=== PATIENT | male | born 1975 | race Caucasian/White ===

== ENCOUNTER 2017-04-07 20:34 | Emergency (ER) | payer BC, OTHER ==
[2017-04-07 20:41] VITALS: BP 153/70
[2017-04-07] MEDS ORDERED: Erythromycin OPTH OINT* APPLIC OINT LEFT EYE ONE (22:41)
[2017-04-07] MEDS ORDERED: Ketorolac INJ* 60 MG/2 ML VIAL IM ONE (22:42)
--- NOTE | 2017-04-07 23:44 | ED ---
Throat Pain/Nasal Congestion - HPI Summary HPI Summary: Patient presents after getting a peice metal he was grinding in his eye yesterday. He was wearing safety glasses, but thinks it came up under the glasses. He was okay yesterday but today he has a foreign body sensation. He denies vision changes, TIJERINA, or drainage. He has photophobia. - History of Current Complaint Chief Complaint: EDEyeProblem Time Seen by Provider: 04/07/17 20:47 Hx Obtained From: Patient, Family/Employment And Claims Aide Onset/Duration: Gradual Onset Severity: Severe Associated Signs And Symptoms: Positive: FB Sensation Cough: None - Allergies/Home Medications Allergies/Adverse Reactions: Allergies Allergy/AdvReac Type Severity Reaction Status Date / Time No Known Allergies Allergy Verified 05/16/16 07:48 PMH/Surg Hx/FS Hx/Imm Hx Endocrine/Hematology History: Denies: Hx Diabetes Respiratory History: Reports: Hx Chronic Bronchitis, Hx Sleep Apnea, Other Respiratory Problems/Disorders - ex-smoker Denies: Hx Asthma, Hx Chronic Obstructive Pulmonary Disease (COPD) GI History: Reports: Hx Irritable Bowel Musculoskeletal History: Reports: Other Musculoskeletal History - temporomandibular joint problems - Surgical History Surgery Procedure, Year, and Place: Appendectomy Infectious Disease History: No Infectious Disease History: Denies: Traveled Outside the [place] in Last 30 Days - Family History Known Family History: Positive: Unknown - Social History Occupation: Employed Full-time Lives: With Family Alcohol Use: None Alcohol Amount: 1 beer Hx Substance Use: No Substance Use Type: Reports: None Hx Tobacco Use: Yes Smoking Status (MU): Light Every Day Tobacco Smoker Type: Cigarettes Amount Used/How Often: 1 cigarette/day Length of Time of Smoking/Using Tobacco: 10 years Have You Smoked in the Last Year: Yes Cessation Counseling: Patient Advised to Stop Review of Systems Positive: Photophobia, Erythema. Negative: Blurred Vision, Diplopia, Drainage Negative: Headache All Other Systems Reviewed And Are Negative: Yes Physical Exam Triage Information Reviewed: Yes Vital Signs On Initial Exam: Initial Vitals Temp Pulse Resp BP Pulse Ox 97.8 F 75 18 153/70 99 04/07/17 20:39 04/07/17 20:39 04/07/17 20:39 04/07/17 20:39 04/07/17 20:39 Vital Signs Reviewed: Yes Appearance: Positive: Well-Appearing, Well-Nourished, Pain Distress Skin: Positive: Warm, Skin Color Reflects Adequate Perfusion, Dry, Soft Head/Face: Positive: Normal Head/Face Inspection Eyes: Positive: EOMI, SWETA, Conjunctiva Inflammed - left ENT: Positive: Hearing grossly normal Respiratory/Lung Sounds: Positive: Breath Sounds Present Cardiovascular: Positive: RRR Musculoskeletal: Negative: Edema Left, Edema Right Neurological: Positive: Sensory/Motor Intact, Alert, Oriented to Person Place, Time, NV Bundle Intact Distally, Normal Gait Psychiatric: Positive: Affect/Mood Appropriate AVPU Assessment: Alert Procedures - Eye Procedure Alcaine Drops Administered: Yes Eye FB Removal: removal w/ cotton swab Eye Irrigated w/ Saline (ccs): 30 Antibiotic Ointment/Drps Admin: left eye Diagnostics - Vital Signs Vital Signs Temp Pulse Resp BP Pulse Ox 04/07/17 20:39 97.8 F 75 18 153/70 99 - Laboratory Lab Statement: Any lab studies that have been ordered have been reviewed, and results considered in the medical decision making process. EENT Course/Dx - Differential Diagnoses Differential Diagnoses: Corneal Abrasion, Detached Retina, Foreign Body, Keratitis, Periorbital/Orbital Cellulitis, Uveitis - Diagnoses Provider Diagnoses: Foreign body of left eye Discharge - Discharge Plan Condition: Stable Disposition: HOME Patient Education Materials: Eye Foreign Body (ED) Referrals: Cullen Acuña MD [Primary Care Provider] - Jian Morelos MD [Medical Doctor] - Additional Instructions: Apply the ointment in 1 cm strips six times daily to treat your eye. Call Dr. Morelos's office first thing in the morning for a follow-up appointment in 1-2 days. Begin taking ibuprofen 600 mg three times daily with meals tomorrow at dinner and continue until pain resolves. Return to the emergency department if symptoms worsen.
== END 2017-04-07 22:57 | disposition home or self-care (01) ==
LOC: ED 20:34
DX: T15.92XA Foreign body on external eye, part unspecified, left eye, initial encounter (principal); F17.210 Nicotine dependence, cigarettes, uncomplicated; X58.XXXA Exposure to other specified factors, initial encounter; Y92.9 Unspecified place or not applicable
CPT/HCPCS: 99281; A9270-GY; J1885

== ENCOUNTER 2018-01-20 19:03 | Emergency (ER) | payer BC ==
[2018-01-20] MEDS ORDERED: Fluorescein Sodium TOPICAL* 1 MG TEST OPHTHALMIC ONE (19:54)
[2018-01-20] MEDS ORDERED: Tetracaine 0.5% OPTH.SOL 4 ML* 1 DROP BTL ONE (19:54)
[2018-01-20] MEDS ORDERED: Fluorescein Sod TOPICAL 0.6* 0.6 MG TEST OPHTHALMIC ONE (20:22)
[2018-01-20] MEDS ORDERED: Polymyx/Trimethoprim OPTH* 10 ML BTL RIGHT EYE ONE (21:09)
--- NOTE | 2018-01-20 21:09 | ED ---
Throat Pain/Nasal Congestion - HPI Summary HPI Summary: 43M presents with potentially right eye foreign body for the past couple days. He states he put on sunglasses and a piece of dust may have landed in his eye. He has been using saline rinses for the area with some relief. He states his eye feels irritated. He states there is no change in vision. He denies any pain. He denies any blurry vision. There is mild conjunctiva injection. He does not wear contacts or glasses. He believes his tetanus is up to date. - History of Current Complaint Chief Complaint: EDEyeProblem Time Seen by Provider: 01/20/18 19:52 - Allergies/Home Medications Allergies/Adverse Reactions: Allergies Allergy/AdvReac Type Severity Reaction Status Date / Time No Known Allergies Allergy Verified 05/16/16 07:48 PMH/Surg Hx/FS Hx/Imm Hx Endocrine/Hematology History: Denies: Hx Diabetes Respiratory History: Reports: Hx Chronic Bronchitis, Hx Sleep Apnea, Other Respiratory Problems/Disorders - ex-smoker Denies: Hx Asthma, Hx Chronic Obstructive Pulmonary Disease (COPD) GI History: Reports: Hx Irritable Bowel Musculoskeletal History: Reports: Other Musculoskeletal History - temporomandibular joint problems - Surgical History Surgery Procedure, Year, and Place: Appendectomy Infectious Disease History: No Infectious Disease History: Denies: Traveled Outside the [place] in Last 30 Days - Family History Known Family History: Positive: Unknown - Social History Alcohol Use: Rare Alcohol Amount: 1 beer Hx Substance Use: No Substance Use Type: Reports: None Hx Tobacco Use: Yes Smoking Status (MU): Current Some Day Smoker Type: Cigarettes Amount Used/How Often: 1 cigarette/day Length of Time of Smoking/Using Tobacco: 10 years Have You Smoked in the Last Year: Yes Review of Systems Negative: Fever Positive: Erythema Negative: Chest Pain Negative: Shortness Of Breath All Other Systems Reviewed And Are Negative: Yes Physical Exam Triage Information Reviewed: Yes Vital Signs On Initial Exam: Initial Vitals Temp Pulse Resp BP Pulse Ox 97.9 F 88 16 143/88 97 01/20/18 19:07 01/20/18 19:07 01/20/18 19:07 01/20/18 19:07 01/20/18 19:07 Vital Signs Reviewed: Yes Appearance: Positive: Well-Appearing Skin: Positive: Warm, Dry Head/Face: Positive: Normal Head/Face Inspection Eyes: Positive: EOMI, SWETA, Conjunctiva Inflammed, Other: - no foreign body seen , small 1mm uptake of sclera at 6 position ENT: Positive: Normal ENT inspection, Pharynx normal, TMs normal Respiratory/Lung Sounds: Positive: Clear to Auscultation, Breath Sounds Present Cardiovascular: Positive: Normal, RRR Musculoskeletal: Positive: Normal Neurological: Positive: Normal Psychiatric: Positive: Normal Procedures - Eye Procedure Alcaine Drops Administered: Yes - 1mm uptake on fluorescein of sclera Diagnostics - Vital Signs Vital Signs Temp Pulse Resp BP Pulse Ox 01/20/18 19:07 97.9 F 88 16 143/88 97 - Laboratory Lab Statement: Any lab studies that have been ordered have been reviewed, and results considered in the medical decision making process. EENT Course/Dx - Course Course Of Treatment: 43M presents with potentially right eye foreign body for the past couple days. He states he put on sunglasses and a piece of dust may have landed in his eye. He has been using saline rinses for the area with some relief. He states his eye feels irritated. He states there is no change in vision. He denies any pain. He denies any blurry vision. There is mild conjunctiva injection. He does not wear contacts or glasses. He believes his tetanus is up to date. On exam mild injected conjunctiva. The extraocular movements intact. SWETA. Or is seen exam shows 1 mm uptake at 6 position of sclera. Will treat with Polytrim. will Follow with optho if no improvement. Patient understands and agrees plan. - Differential Diagnoses Differential Diagnoses: Conjunctivitis, Corneal Abrasion, Foreign Body, Glaucoma - Diagnoses Provider Diagnoses: Abrasion of sclera of right eye Discharge - Discharge Plan Condition: Good Disposition: HOME Patient Education Materials: Corneal Abrasion (ED) Referrals: Cullen Acuña MD [Primary Care Provider] - Javi Ye MD [Medical Doctor] - Additional Instructions: Place 1 drop in eye 4 times a day for 5 days Use artificial tears or saline to rinse eye for symptomatic relief Take Tylenol or ibuprofen for pain every 6 hours Follow up with ophthalmology if no improvement in 5 days Return to ED if develop any new or worsening symptoms
[2018-01-20 21:35] VITALS: BP 127/77
== END 2018-01-20 21:34 | disposition home or self-care (01) ==
LOC: ED 19:03
DX: T15.91XA Foreign body on external eye, part unspecified, right eye, initial encounter (principal); S05.01XA Injury of conjunctiva and corneal abrasion without foreign body, right eye, initial encounter; X58.XXXA Exposure to other specified factors, initial encounter; Y92.9 Unspecified place or not applicable; Z72.0 Tobacco use
CPT/HCPCS: 99282; A9270-GY

== ENCOUNTER 2018-11-12 08:31 | Emergency (ER) | payer BC ==
--- NOTE | 2018-11-12 09:08 | ED ---
HPI Chest Pain - HPI Summary HPI Summary: A 43 y/o M presents to ED with c/o intermittent episodes of left lower anterior CP onset three weeks. CP is described as sharp and radiating upward in his chest. Pain rated as 2-3 out of 10 at bedside. Pt has a past L shoulder injury and is unsure if his recent CP is radiating to his LUE. Denies fever, cough, abd pain, LE pain. He feels these sx are different than his previous episodes of GERD. Pt states he finally has time to get the pain assessed, he's been busy with work. Pt called his PCP, Dr. Acuña, today who referred him to ED. He has had a previous stress test and endoscopy. PMHx: sleep apnea, he uses a CPAP ; GERD. Vital signs while in room: HR 82 bpm, BP 126/75. Home Medications Medication Instructions Recorded Confirmed Type ALPRAZolam [Xanax] 1 tab PO DAILY PRN 11/12/18 11/12/18 History - History of Current Complaint Chief Complaint: EDChestPainROMI Time Seen by Provider: 11/12/18 08:52 Hx Obtained From: Patient Onset/Duration: Started Weeks Ago, Atraumatic, Still Present Timing: Intermittent Initial Severity: Moderate Current Severity: Mild Pain Intensity: 2 - at bedside Pain Scale Used: 0-10 Numeric Chest Pain Location: Left Anterior - lower Chest Pain Radiates: Yes Chest Pain Radiates To:: Shoulder - left Character: Sharp/Stabbing Aggravating Factor(s): Nothing Alleviating Factor(s): Nothing Associated Signs and Symptoms: Negative: Fever, Cough, Abdominal Pain, Calf Pain /Swelling - Allergy/Home Medications Allergies/Adverse Reactions: Allergies Allergy/AdvReac Type Severity Reaction Status Date / Time No Known Allergies Allergy Verified 11/12/18 08:36 Home Medications: Home Medications ALPRAZolam [Xanax] 1 tab PO DAILY PRN 11/12/18 [History Confirmed 11/12/18] PMH/Surg Hx/FS Hx/Imm Hx Previously Healthy: No Endocrine/Hematology History: Denies: Hx Diabetes Respiratory History: Reports: Hx Chronic Bronchitis, Hx Sleep Apnea, Other Respiratory Problems/Disorders - ex-smoker Denies: Hx Asthma, Hx Chronic Obstructive Pulmonary Disease (COPD) GI History: Reports: Hx Gastroesophageal Reflux Disease, Hx Irritable Bowel Musculoskeletal History: Reports: Other Musculoskeletal History - TMJ problems Opthamlomology History: Denies: Hx Legally Blind EENT History: Denies: Hx Deafness - Surgical History Surgery Procedure, Year, and Place: Appendectomy Infectious Disease History: No Infectious Disease History: Denies: Traveled Outside the [place] in Last 30 Days - Family History Known Family History: Positive: Cardiac Disease - CAD; great grandfather [place]; grandfather triple bypass - Social History Occupation: Employed Full-time Lives: Alone Alcohol Use: Rare Alcohol Amount: 1 beer Hx Substance Use: No Substance Use Type: Reports: None Hx Tobacco Use: Yes Smoking Status (MU): Light Every Day Tobacco Smoker Type: Cigarettes Amount Used/How Often: 1 cigarette/day Length of Time of Smoking/Using Tobacco: 10 years Have You Smoked in the Last Year: Yes Review of Systems Negative: Fever Positive: Chest Pain Negative: Cough Negative: Abdominal Pain Positive: no symptoms reported Negative: Edema - pedel edema/pain Skin: Negative Neurological: Negative Psychological: Normal All Other Systems Reviewed And Are Negative: Yes Physical Exam - Summary Physical Exam Summary: Appearance: Well-appearing, moderate pain distress, well-nourished Skin: Warm, color reflects adequate perfusion, dry Head: Normal Head/Face inspection, atraumatic Eyes: Conjunctiva clear ENT: Normal inspection Neck: Supple, no nodes, no JVD Respiratory: Lungs clear, normal breath sounds, no respiratory distress Cardio: RRR, No murmur, pulses normal, brisk capillary refill Abdomen: Soft, nontender Bowel sounds: Present Musculoskeletal: Strength Intact/ROM intact, no calf tenderness, no edema. Psychological: Normal Neuro: Alert, muscle tone normal, no focal deficit Triage Information Reviewed: Yes Vital Signs On Initial Exam: Initial Vitals Temp Pulse Resp BP Pulse Ox 98.1 F 79 20 137/78 98 11/12/18 08:34 11/12/18 08:34 11/12/18 08:34 11/12/18 08:34 11/12/18 08:34 Vital Signs Reviewed: Yes Diagnostics - Vital Signs Vital Signs Temp Pulse Resp BP Pulse Ox 11/12/18 09:00 81 18 126/75 97 11/12/18 08:34 98.1 F 79 20 137/78 98 - Laboratory Result Diagrams: 11/12/18 09:19 11/12/18 09:19 Lab Statement: Any lab studies that have been ordered have been reviewed, and results considered in the medical decision making process. - Radiology CXR Radiology Interpretation Completed By: Radiologist Summary of Radiographic Findings: IMPRESSION: No active cardiopulmonary disease is noted. ED provider has reviewed this report. L SHOULDER Radiology Interpretation Completed By: Radiologist Summary of Radiographic Findings: IMPRESSION: OSTEOARTHRITIS. NO ACUTE OSSEOUS INJURY. IF SYMPTOMS PERSIST, RECOMMEND REPEAT IMAGING. ED provider has reviewed this report. - EKG 0845 Cardiac Rate: NL - 71bpm EKG Rhythm: Sinus Rhythm ST Segment: Non-Specific - No acute changes Ectopy: None EKG Comparison: Other - No prior to compare Summary of EKG Findings: EKG at 0845 reveals nml AVIVCT, nml QTc, left axis (-20 ) Re-Evaluation - Re-Evaluation 1 Re-Evaluation Time: 11:39 Change: Unchanged Comment: Pt still having 1-2 out of 10 L anterior CP. He is requesting further evaluation of his L shoulder. Agreeable to omeprazole at this time. 2 Re-Evaluation Time: 13:12 Change: Improved Comment: Patient is pain free. He requests a referral to ortho. Discussed GERD. Will discharge home. Chest Pain Course/Dx - Course Course Of Treatment: Pt is a healthy 43 y/o M presenting with intermittent episodes of left lower anterior CP onset three weeks ago. His chest pain, rated 2/3 out of 10, is described as sharp and radiating upward in his chest. Pt has a past L shoulder injury and is unsure if his recent CP is radiating to his LUE. Denies fever, cough, abd pain, LE pain. Pt was given protonix 80mg IV and ASA 324mg po with relief of sxs. CXR shows no active cardiopulmonary dz. L Shoulder XR shows "OSTEOARTHRITIS. NO ACUTE OSSEOUS INJURY." UA reviewed. Lab work WNL except mildly elevated BUN/C. Repeat troponin is unchanged at 0.00. Allergies noted, blood pressure noted. Pt medications reviewed this visit. EKG at 0845 reveals 71 SR, nml AVIVCT, nml QTc, left axis (-20), no acute changes ( ST), no prior to compare. Patient will be discharged home. - Chest Pain Differential Diagnosis/HQI/PQRI: Acute [place], ACS, Angina, GI Disease, Lower Respiratory Infection, Pulmonary Edema, Pulmonary Embolism - Diagnoses Provider Diagnoses: Chest pain, Osteoarthritis of left shoulder, GERD (gastroesophageal reflux disease) Discharge - Sign-Out/Discharge Documenting (check all that apply): Patient Departure - D/C - Discharge Plan Condition: Stable Disposition: HOME Prescriptions: Pantoprazole TAB (NF) [Protonix TAB (NF)] 40 mg PO DAILY #30 tab Patient Education Materials: Chest Pain (ED), Gastroesophageal Reflux Disease in Children (ED), Shoulder Pain (ED) Referrals: Tian Woody MD [Medical Doctor] - 2 Days (for your left shoulder pain/osteoarthritis ) Cullen Acuña MD [Primary Care Provider] - 2 Days Additional Instructions: You were given aspirin 325mg orally and pantoprazole 80mg IV with good relief of your left shoulder pain and chest pain. The xray reports are included here, as are your labs. You had two troponin levels that were zero, so no evidence of any cardiac source of your discomfort. RETURN TO THE EMERGENCY DEPARTMENT FOR CHANGING OR WORSENING SYMPTOMS. - Billing Disposition and Condition Condition: STABLE Disposition: Home - Attestation Statements Document Initiated by Deonibsylwia: Yes Documenting Scribe: Mikhail Mart Provider For Whom Maritza is Documenting (Include Credential): Dr. Ama Squires MD Scribe Attestation: Mikhail Saleh scribed for Dr. Ama Squires MD on 11/20/18 at 0104. Scribe Documentation Reviewed: Yes Provider Attestation: The documentation as recorded by the Mikhail zarate accurately reflects the service I personally performed and the decisions made by , Dr. Ama Squires MD Status of Scribe Document: Viewed
[2018-11-12] MEDS ORDERED: Aspirin 81 mg CHEW TAB* 81 MG TAB.CHEW PO ONE (09:15)
[2018-11-12 09:31] LABS: ABS Basophils 0 10^3/ul (0-0.2); ABS Eosinophils 0.1 10^3/ul (0-0.6); ABS Lymphocytes 2.2 10^3/ul (1.0-4.8); ABS Monocytes 0.4 10^3/ul (0-0.8); ABS Nucleated RBC 0 10^3/ul; Eosinophil % 1.8 %; Hematocrit 44 % (42-52); Hemoglobin 14.9 g/dl (14.0-18.0); Lymphocyte % 39.2 %; Mean Corpuscular HGB Conc 34 g/dl (31-36); Mean Corpuscular Hemoglobin 30 pg (27-31); Mean Corpuscular Volume 88 fL (80-94); Mean Platelet Volume 7.7 fL (7.4-10.4); Nucleated Red Blood Cells % 0; Platelet Count 230 10^3/ul (150-450); Red Blood Count 5.01 10^6/ul (4.00-5.40); Red Cell Distribution Width 13 % (10.5-15); White Blood Count 5.7 10^3/ul (3.5-10.8)
[2018-11-12 09:41] LABS: Activated Partial Thrombo Time 33.7 seconds (26.0-36.3); INR 0.94 (0.77-1.02)
[2018-11-12 09:46] LABS: Urine Appearance Clear; Urine Bilirubin Negative (Negative); Urine Blood Negative (Negative); Urine Color Straw; Urine Glucose Negative (Negative); Urine Ketones Negative (Negative); Urine Nitrite Negative (Negative); Urine Protein Negative (Negative); Urine Specific Gravity 1.009 (1.010-1.030); Urine Urobilinogen Negative (Negative)
[2018-11-12 09:52] LABS: Albumin 4.3 g/dL (3.2-5.2); Albumin/Globulin Ratio 1.8 (1-3); BUN/Creatinine Ratio 20.4 (8-20); Calcium 9.4 mg/dL (8.6-10.3); Globulin 2.4 g/dL (2-4); Potassium 4.2 mmol/L (3.5-5.0); Total Bilirubin 0.4 mg/dL (0.2-1.0); Total Protein 6.7 g/dL (6.4-8.9)
[2018-11-12 10:14] LABS: TSH (Thyroid Stimulating Horm) 1.45 mcIU/mL (0.34-5.60)
[2018-11-12] MEDS ORDERED: Pantoprazole IV* 40 MG IV ONE (11:43)
[2018-11-12 13:34] VITALS: BP 111/71
== END 2018-11-12 13:33 | disposition home or self-care (01) ==
LOC: ED 08:31
DX: R07.89 Other chest pain (principal); M19.012 Primary osteoarthritis, left shoulder; K21.9 Gastro-esophageal reflux disease without esophagitis; Z82.49 Family history of ischemic heart disease and other diseases of the circulatory system; F17.210 Nicotine dependence, cigarettes, uncomplicated
CPT/HCPCS: 36415; 71045; 80053; 81003; 82550; 82553; 83605; 83735; 83880; 84436; 84443; 84484; 85025; 85379; 85610; 85730; 93005; 96374; 99283; A9270-GY

== ENCOUNTER → 2019-03-21 21:03 | Emergency (ER) | payer BC ==
[~2019-03-21 21:03] MED LIST: Lidocaine 2% VISCOUS* 15 ML UDC PO ONE
[2019-03-21 21:42] LABS: Rapid Strep Molecular Negative (Negative)
--- NOTE | 2019-03-21 21:56 | ED ---
Throat Pain/Nasal Congestion - HPI Summary HPI Summary: 44-year-old male presents with sore throat for the past 2 days. He states he was exposed to someone with strep. He states he believes that there is white spots on his tonsils. He denies any chest pain or shortness breath. No pain. No nausea or vomiting. Exercise congestion and some ear pressure. No headache. No fevers. Has history of GERD. - History of Current Complaint Chief Complaint: EDThroatPain Time Seen by Provider: 03/21/19 21:16 - Allergies/Home Medications Allergies/Adverse Reactions: Allergies Allergy/AdvReac Type Severity Reaction Status Date / Time No Known Allergies Allergy Verified 03/21/19 21:06 PMH/Surg Hx/FS Hx/Imm Hx Endocrine/Hematology History: Denies: Hx Diabetes Respiratory History: Reports: Hx Chronic Bronchitis, Hx Sleep Apnea, Other Respiratory Problems/Disorders - ex-smoker Denies: Hx Asthma, Hx Chronic Obstructive Pulmonary Disease (COPD) GI History: Reports: Hx Gastroesophageal Reflux Disease, Hx Irritable Bowel Musculoskeletal History: Reports: Other Musculoskeletal History - TMJ problems Sensory History: Denies: Hx Legally Blind, Hx Deafness Opthamlomology History: Denies: Hx Legally Blind - Surgical History Surgery Procedure, Year, and Place: Appendectomy Infectious Disease History: No Infectious Disease History: Denies: Traveled Outside the [place] in Last 30 Days - Family History Known Family History: Positive: Cardiac Disease - CAD; great grandfather [place]; grandfather triple bypass - Social History Alcohol Use: Rare Alcohol Amount: 1 beer Hx Substance Use: No Substance Use Type: Reports: None Hx Tobacco Use: Yes Smoking Status (MU): Former Smoker Type: Cigarettes Amount Used/How Often: 1 cigarette/day Length of Time of Smoking/Using Tobacco: 10 years Have You Smoked in the Last Year: Yes Review of Systems Negative: Fever Positive: Sore Throat, Nasal Discharge Negative: Chest Pain Negative: Shortness Of Breath All Other Systems Reviewed And Are Negative: Yes Physical Exam Triage Information Reviewed: Yes Vital Signs On Initial Exam: Initial Vitals Temp Pulse Resp BP Pulse Ox 97.5 F 80 16 140/77 98 03/21/19 21:04 03/21/19 21:04 03/21/19 21:04 03/21/19 21:04 03/21/19 21:04 Vital Signs Reviewed: Yes Appearance: Positive: Well-Appearing Skin: Positive: Warm, Dry Head/Face: Positive: Normal Head/Face Inspection Eyes: Positive: Normal, EOMI, SWETA, Conjunctiva Clear ENT: Positive: Pharyngeal erythema, TMs normal, Uvula midline, Other - soft palate symmetric. Negative: Tonsillar swelling, Tonsillar exudate, Trismus, Muffled voice Respiratory/Lung Sounds: Positive: Clear to Auscultation, Breath Sounds Present Cardiovascular: Positive: Normal, RRR Abdomen Description: Positive: Nontender, Soft Bowel Sounds: Positive: Present Musculoskeletal: Positive: Normal Neurological: Positive: Normal Psychiatric: Positive: Normal Diagnostics - Vital Signs Vital Signs Temp Pulse Resp BP Pulse Ox 03/21/19 21:04 97.5 F 80 16 140/77 98 - Laboratory Lab Results: Lab Results 03/21/19 Range/Units 21:20 Group A Strep Rapid Negative (Negative) Lab Statement: Any lab studies that have been ordered have been reviewed, and results considered in the medical decision making process. EENT Course/Dx - Course Course Of Treatment: 44-year-old male presents with sore throat for the past 2 days. He states he was exposed to someone with strep. He states he believes that there is white spots on his tonsils. He denies any chest pain or shortness breath. No pain. No nausea or vomiting. Exercise congestion and some ear pressure. No headache. No fevers. Has history of GERD. On exam pharynx erythematous. Uvula midline. Soft palate symmetric. Does have tonsillar stone present. Strep is negative. We will treat viral with magic mouth wash for supportive therapy. Patient understands agrees with plan. - Differential Diagnoses Differential Diagnoses: Pharyngitis, Sinusitis, Tonsilitis - Diagnoses Provider Diagnoses: Pharyngitis Discharge - Sign-Out/Discharge Documenting (check all that apply): Patient Departure Patient Received Moderate/Deep Sedation with Procedure: No - Discharge Plan Condition: Good Disposition: HOME Prescriptions: Magic Mouth Was-PARISA/MAAL/LIDO* 5 ml SWISH SPIT QID #100 ml Patient Education Materials: Pharyngitis (ED) Referrals: Cullen Acuña MD [Primary Care Provider] - Additional Instructions: Magic mouthwash 5ml swish and spit can use 4x a day Take Tylenol or ibuprofen for pain every 6 hours Use saline spray in nose as much as needed for nasal congestion Can gargle salt water Can use cough drops or products such as cloraseptic spray follow up with primary Return to ED if develop any new or worsening symptoms - Billing Disposition and Condition Condition: GOOD Disposition: Home
[2019-03-21 22:11] VITALS: BP 136/70
== END | disposition home or self-care (01) ==
LOC: ED 21:03
DX: J02.9 Acute pharyngitis, unspecified (principal); K21.9 Gastro-esophageal reflux disease without esophagitis; G47.30 Sleep apnea, unspecified; Z87.891 Personal history of nicotine dependence
CPT/HCPCS: 87651; 99282